=== PATIENT | female | born 1995 | race Caucasian/White ===

== ENCOUNTER 2019-06-29 11:17 | Emergency (ER) | payer SELFPAY ==
[~2019-06-29] VITALS: Ht 162.6 cm; Wt 57.9 kg
[~2019-06-29 11:17] MED LIST: ACET500C5 PO; HYDR-4011 PO; IBUP-1542 PO; ONDA4TAB14 PO
[2019-06-29 11:21] VITALS: Ht 162.6 cm; Wt 57.9 kg
[2019-06-29] MEDS ORDERED: SOD CHLORIDE 0.9% 1,000 ML IV STA (12:29)
[2019-06-29] MEDS ORDERED: ONDANSETRON 4 MG INJ IV STA (12:29)
[2019-06-29] MEDS ORDERED: morphine 4 MG/ML VIAL IV STA (12:29)
[2019-06-29] MEDS ORDERED: POTASSIUM CHLORIDE (SR) 20 MEQ TAB PO STA (19:01)
[2019-06-29] MEDS ORDERED: ONDANSETRON (ODT) 4 MG TAB ODT STA (19:15)
[2019-06-29 19:36] VITALS: BP 121/72; PULSE 63; RESP 20
== END 2019-06-29 19:38 | disposition home or self-care (01) ==
LOC: FTE 11:17
DX: N93.9 Abnormal uterine and vaginal bleeding, unspecified (principal); R10.2 Pelvic and perineal pain
CPT/HCPCS: 74176; 76830; 76856; 80053; 81001; 83690; 84702; 85025; 85610; 85730; 96374; 96375; 99285; J2270; J2405; J7030